=== PATIENT | female | born 1950 | race Caucasian/White ===

== ENCOUNTER 2023-07-20 01:45 | Emergency (ER) | payer SELFPAY ==
[2023-07-20 01:55] VITALS: BP 178/98
--- NOTE | 2023-07-20 02:51 | ED.GENMED ---
History of Present Illness
<ROSEMARY Cole - Last Filed: 07/20/23 05:08>
General
Chief Complaint: Psychiatric Problem
Source: patient and family
Exam Limitations: altered mental status
Time Seen by Provider: 07/20/23 02:13
Nursing documentation reviewed up to this point in time: agreed with
Travel History
Have you had any contact with someone who has COVID-19?: No
Do you have any symptoms of coronavirus? Fever > 100 degrees, chills, cough, shortness of breath, sore throat, loss of taste or smell, muscle aches, or headache?: No
History of Present Illness
History of Present Illness:
73 y/o F presents to ED after psychotic episode. Patient presents with family who were mostly silent during visit and allowed patient to talk. Patient states that around 1800, she and her were suddenly in a different house from their own to
discuss her 's medical problems. She states the house looked like her own but was very different. She said that she kept calling her husbands name but he was not coming to her. She states she thought that he was grabbing at her and was afraid
she might get hurt. Patient states the house had 2 little girls as well. She says they were in the house for hours until her daughter and brought her to the ED. She states her daughter told her multiple times she is inside her own house, but
patient declined and said 'this is not the house, everything is different.' Patient is still in delusional episode in ED and believes she is feeling normal. When speaking with and daughter, it was stated that patient has had these episodes
in the past. They stated that her had stroke and cardiac event 1 week ago and was in hospital for it. The patient has been stressed and may be having psychosis secondary to the stress. Patient is not on any medications. She does not follow
with any doctors or specialists.
If applicable-neuro sx onset
Onset of symptoms known: Yes
Date of onset of symptoms: 07/20/23
Past History
<ROSEMARY Cole - Last Filed: 07/20/23 05:08>
Past History
ED Past Medical History: HTN and Other (Gallbladder disease, detached retina)
ED Past Surgical History: Other (Surgery for detached Retina)
Social History
Personal:
Living: with family
Employment: Not employed
Review of Systems
<ROSEMARY Cole - Last Filed: 07/20/23 05:08>
Review of Systems
Allergies reviewed?: Yes
Other source history: family
All Other Systems: ROS reviewed and negative except as documented in HPI and ROS
Constitutional: Reports no symptoms
EENT: Reports no symptoms
Respiratory: Reports no symptoms
Cardiac: Reports no symptoms
ABD/GI: Reports no symptoms
: Reports no symptoms
Musculoskeletal: Reports no symptoms
Skin: Reports no symptoms
Neurological: Reports no symptoms
Endocrine: Reports no symptoms
Hematologic/Lymphatic: Reports no symptoms
Psychiatric: Reports anxiety and hallucinations
Phy Exam
<ROSEMARY Cole - Last Filed: 07/20/23 05:08>
General Physical Exam
General Presentation: well appearing and no apparent distress
General age: appears stated age
General Skin: warm
General Habitus: normal
General Mental: alert
General Hydration: appears well hydrated
Eye Exam
Eye Exam: PERRL and EOMI
Cardiovascular Exam
Cardiovascular Exam: regular rate/rhythm, no edema, no gallop, no murmur and normal peripheral pulses
Pulmonary Exam
Pulmonary Exam: lungs clear
Gastrointestinal Exam
Gastrointestinal Exam: normal bowel sounds, non tender, soft and non distended
Neurological Exam
Neurological Exam: alert and confused
Skin Exam
Skin Exam: normal color and no rash
Psychiatric Exam
Psychiatric Exam: delusions and hallucination
Course
<ROSEMARY Cole - Last Filed: 07/20/23 05:08>
Orders/Labs/Results
Orders:
Orders
07/20/23 03:31
Crisis Consult Urgent
Reason for Consult: acute confusion/visual hallucination tonight. Under stress/worry re: spouce
Vital Signs
Initial and Last Documented VS:
Initial Vital Signs
Temp Pulse Resp BP Pulse Ox
98 F 94 18 178/98 98
07/20/23 01:55 07/20/23 01:55 07/20/23 01:55 07/20/23 01:55 07/20/23 01:55
Last Documented Vital Signs
Temp Pulse Resp BP Pulse Ox
98 F 67 20 178/98 99
07/20/23 01:55 07/20/23 04:52 07/20/23 04:52 07/20/23 01:55 07/20/23 04:52
<Bobbi Reed DO - Last Filed: 07/20/23 04:15>
Orders/Labs/Results
Orders:
Orders
07/20/23 03:31
Crisis Consult Urgent
Reason for Consult: acute confusion/visual hallucination tonight. Under stress/worry re: spouce
Vital Signs
Initial and Last Documented VS:
Initial Vital Signs
Temp Pulse Resp BP Pulse Ox
98 F 94 18 178/98 98
07/20/23 01:55 07/20/23 01:55 07/20/23 01:55 07/20/23 01:55 07/20/23 01:55
Last Documented Vital Signs
Temp Pulse Resp BP Pulse Ox
98 F 67 20 178/98 99
07/20/23 01:55 07/20/23 04:52 07/20/23 04:52 07/20/23 01:55 07/20/23 04:52
<ROSEMARY Cole - Last Filed: 07/20/23 05:08>
MDM/Problems Addressed
Differential Diagnosis Includes:
Med induced psychosis
Stress induced psychosis
Overdose
Electrolyte abnormality
<ROSEMARY Cole - Last Filed: 07/20/23 05:08>
*Critical Care Note
Total Time (30-74mins, 75-104mins- exclusive of procedures): Not Applicable
ED Attending Note
<ROSEMARY Cole - Last Filed: 07/20/23 05:08>
-
Portions of this chart may have been created with voice recognition software.� Occasional wrong word or��sound alike� substitutions may have occurred due to the inherent limitations of voice recognition software.
<Bobbi Reed DO - Last Filed: 07/20/23 04:15>
ED Attending Note
Patient seen and examined by attending physician: Yes
I performed the substantive portion of visit, reviewed & personally made and approve the management plan that is documented in note by myself or IRIS.: Yes
I performed a history and physical exam of patient and discussed management with resident, I reviewed resident's note and agree with documented findings and plan of care.: Yes
ED Attending Note:
This is a 73-year-old woman who was brought to the ED by her and adult daughter with concern for acute psychosis.
Patient has been under tremendous stress over the past month as her was hospitalized 3 to 4 weeks ago after suffering an acute stroke, discharged to home 2 weeks ago. He is scheduled for right and outpatient cardiac procedure next week and
tonight they placed a phone call to the sister and her who reside in [place]. The sister's is a plumbing installer and spoke with them regarding upcoming procedures and gave some advice. After this telephone call the
patient began to hallucinate thinking that she was in the plumbing installer office and attempted to leave the house. The attempted to intervene and patient became more agitated. She eventually called her daughter who came over to the house and
both the daughter and brought the patient to the ED for further evaluation.
Since arrival to the ED she is now calm, continues to believe that she was at the plumbing installer office.
According to family, the patient has had somewhat similar anxiety and confusional states sporadically over a number of years most often when her is undergoing various treatments such as during his treatment for lymphoma as well as treatment
for prostate cancer in the past.
The patient herself refuses routine care, has not been to a family doctor in many years. She takes no medicines on a daily basis. There has been no history of alcohol nor drug use.
Although continuing to believe that she was at the plumbing installer office [facility], she now knows that she is currently at [facility] She does admit to mildly poor sleep but denies inability to sleep. She does admit to mildly decreased
appetite but continues to eat near normal portions and has had no weight loss.
She also apparently suffered a fall 1 week ago. Denies injury. She denies headache. Denies dizziness or lightheadedness. No recurrent fall.
Upon review of records patient had an ED visit in 2014 requesting medical clearance/physical exam for cataract extraction. Was noted to be hypertensive. Routine laboratory studies including TSH were all within normal limits.
Cholesterol was elevated at 276, LDL 146 with markedly elevated HDL of 116 and normal triglycerides at 74.
GENERAL: 73-year-old woman appears her stated age, awake and alert, mildly anxious but easily communicative. Speech is clear. Continues to believe she was at plumbing installer office [facility] and states she is being 'gaslighted' by her family.
EYE: pupils equal and reactive. anicteric
NECK: Supple, nontender, no meningismus, no significant adenopathy.
ENT: oral mucosa is moist. No rhinorrhea.
CARDIAC: Regular rhythm with occasional ectopy, rate is 70, no murmur.
LUNGS: Clear breath sounds bilaterally, no acute respiratory distress, no wheezes/rales/rhonchi
ABDOMEN: Soft, nondistended, without focal tenderness, normoactive BS.
NEUROLOGICAL: Alert and oriented x3, no focal neuro deficits. Gait is kaplan and steady.
SKIN: Warm and dry, normal color, skin intact. No rash.
MUSCULOSKELETAL: No C/C/E. peripheral pulses are full and equal b/l. No palpable tenderness.
PSYCH: Mildly anxious. Continues to believe she was at plumbing installer office tonight however cannot recall how she got there and admits that she was on the phone with the plumbing installer. Currently however she knows that she is at [facility],
she is oriented x 3. Currently denies hallucinations.
There has been no report of alcohol or drug use.
I suspect acute stress related psychosis. Other consideration is a CYBER OPERATOR event such as lacunar infarct, less likely CYBER OPERATOR tumor. Other consideration is thyroid disorder.
Patient continues to adamantly refuse laboratory studies, adamantly refused CT of the head or any other testing.
She repeatedly requests to go home.
At this point as patient does not appear to be a danger to herself nor others, there is no legal records for involuntary psychiatric/medical evaluation.
I have consulted [facility] to perhaps offer outpatient resources, outpatient contact information.
requested a medication to sedate the patient. At this point with history of a fall 1 week ago I would be inclined to avoid anything sedating especially without at least baseline labs and CT of the head.
Once my concerns were discussed he is in complete agreement.
Going forward however if patient becomes a danger to herself or others, recommend they contact [facility], consider 302 petition.
Discharge Plan
Departure
Patient Disposition: Home (Routine Discharge)
Date of Disposition: 07/20/23
Time of Disposition: 04:00
Patient with high blood pressure during this ER visit?: Yes
Condition: Fair
Discharge Problem:
acute stress related psychosis
Instructions: Adjustment Disorder, Schizophrenia (DC), BLOOD PRESSURE
Prescriptions:
No Action
No Current Medications
0
Referrals:
[facility] [Outside] - Call in 1-3 days for appt
NONE,* [Family Provider] -
Interventions
Interventions:
*Risk Screen - Suicide Last Done: 07/20/23 04:52
*General Assessment Last Done: 07/20/23 04:28
*Neglect/Abuse Screening Last Done: 07/20/23 03:24
ED- Fall Risk Assessment Last Done: 07/20/23 04:52
*ED COVID-19 Vaccine History Last Done: 07/20/23 04:52
*Nursing Disposition Last Done: 07/20/23 04:52
ED-Psychological Assessment Last Done: 07/20/23 03:53
Discharge Date and Time
Discharge Date/Time: 07/20/23 04:54
== END 2023-07-20 04:54 | disposition home or self-care (01) ==
LOC: EMR 01:45
PROVIDERS: EMERGENCY PHYSICIAN Emergency Medicine
DX: F29 Unspecified psychosis not due to a substance or known physiological condition (principal); I10 Essential (primary) hypertension; Z73.3 Stress, not elsewhere classified
CPT/HCPCS: 99282